=== PATIENT | male | born 1950 | race Caucasian/White ===

== ENCOUNTER → 2016-09-19 | Outpatient (CLI) | payer OTHER ==
[~2016-09-19] MED LIST: ADVIN25050 INH; ALBUAER2 INH; ASPI325T39 PO; BORO3CAP PO; BREWPOW PO; CHOL100010 PO; CHRO200T3 PO; COEN75CA PO; COPP1TAB PO; FOLI800T PO; IBUP-103 PO; IODITIN6 PO; IRON PO; MAGN30TA4 PO; METH10TA32 PO; NAPR1TAB9 PO; PRD/25 PO; ZINC1CAP PO
--- NOTE | 2016-09-19 09:31 | DIAGNOSTIC IMAGING REPORT ---
LEFT WRIST 4 VIEWS CLINICAL HISTORY: Palpable lump and wrist pain. FINDINGS: 4 views of left wrist are obtained. No prior studies are available for comparison at the time of dictation. The skeletal structures are osteopenic. No acute fracture is identified. 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 There is negative ulnar variance with advanced degenerative change at the distal radiocarpal joint. There is bony erosion of the radius at the radioulnar articulation. There is advanced arthritic change involving the carpal bones, with collapse of the proximal carpal row. 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 There is subluxation of the lunate seen on the lateral view. Advanced arthritic changes also present the carpometacarpal joints. Overlying soft tissue edema is noted. IMPRESSION: 1. Soft tissue swelling with no acute bony abnormalities identified. 2. Osteopenia with advanced arthritic change and deformity as well as collapse of the proximal carpal row as detailed above. Electronically signed by: José Miguel Huang M.D. 09/19/2016 9:29 AM Dictated Date/Time: 09/19/2016 9:26 AM
== END | disposition home or self-care (01) ==
LOC: C.LABPVFM 09:10
PROVIDERS: ATTEND Family Medicine
DX: R22.32 Localized swelling, mass and lump, left upper limb (principal); M79.9 Soft tissue disorder, unspecified; M85.842 Other specified disorders of bone density and structure, left hand; M19.032 Primary osteoarthritis, left wrist

== ENCOUNTER → 2017-04-23 | Outpatient (CLI) | payer OTHER ==
--- NOTE | 2017-04-23 12:29 | DIAGNOSTIC IMAGING REPORT ---
RIGHT ELBOW MIN 3 VIEWS ROUTINE CLINICAL HISTORY: 66 years-old Male presenting with ARM SWELLING RIGHT, lump on the medial aspect of the elbow, history of injury 20 years ago. TECHNIQUE: Frontal, oblique, and lateral views of the right elbow were obtained. COMPARISON: MR of the elbow from 10/08/2014. FINDINGS: No acute fracture or malalignment. Significant degenerative changes evidenced by joint space loss at the radiocapitellar articulation. Subchondral cystic change noted at the coronoid process and trochlea as well as exuberant osteophytosis. Slight deformity of the radial head may suggest prior fracture or relate to degenerative change. No significant soft tissue swelling over the olecranon. The extensive medial fluid collection seen on the previous study from 2014 is not appreciated radiographically. An elbow joint effusion may be present. IMPRESSION: Severe degenerative change at the medial and lateral joint space as above. No acute osseous injury. Possible elbow joint effusion. Given the presence of the large fluid collection in the medial soft tissues of the proximal forearm on prior MR from 2014, if there is continuing clinical concern for soft tissue swelling, contrast-enhanced MR of the elbow could be obtained. Electronically signed by: Garrett Dale M.D. 04/23/2017 12:27 PM Dictated Date/Time: 04/23/2017 12:23 PM
== END | disposition home or self-care (01) ==
LOC: C.RADPV 12:05
PROVIDERS: ATTEND Family Medicine
DX: M79.89 Other specified soft tissue disorders (principal); R22.31 Localized swelling, mass and lump, right upper limb

== ENCOUNTER → 2017-04-25 | Outpatient (CLI) | payer OTHER ==
[2017-04-25 18:04] LABS: BLOOD UREA NITROGEN 15 mg/dl (7-18); CREATININE 0.78 mg/dl (0.60-1.40)
== END | disposition home or self-care (01) ==
LOC: C.LABPVFM 13:13
PROVIDERS: ATTEND Family Medicine
DX: R22.30 Localized swelling, mass and lump, unspecified upper limb (principal)

== ENCOUNTER → 2017-04-29 | Outpatient (CLI) | payer OTHER ==
[~2017-04-29] MED LIST changes: +GADAVIST IV PRN
--- NOTE | 2017-04-29 13:28 | DIAGNOSTIC IMAGING REPORT ---
MRI THE RIGHT ELBOW WITHOUT A WITH GADOLINIUM CLINICAL HISTORY: Localized swelling, right elbow mass. COMPARISON STUDY: Outside MRI dated 10/08/2014, conventional radiographic study dated 04/21/2017. FINDINGS: Imaging was performed in the sagittal axial and coronal planes. Imaging before and after the administration of 6 cc of intravenous Gadavist was performed. There are multiple large intra-articular cystic lesions measuring up to 34 mm in diameter. These have increased in size and number when compared the preceding study. There is intraosseous involvement involving the distal humerus and proximal ulna. The intraosseous ulnar component measurers 37 mm in long axis. This also has increased significantly when compared the preceding study. Many of the cystic lesions demonstrate wall enhancement. There is a running of soft tissue enhancement surrounding the radial head measuring 1 cm in thickness. Diagnostic considerations include reactive synovial enhancement versus neoplasm. Given the interval change, biopsy should be considered in follow-up. IMPRESSION: 1. Interval increase in the size and number of the multiple intra-articular an intraosseous cystic lesions. 2. Synovial/soft tissue enhancement most pronounced the level of the radial head and neck. 3. While the findings may simply reflect multiple ganglion cysts and reactive synovial enhancement, a neoplastic process cannot be excluded. Biopsy should be considered in follow-up. Electronically signed by: Shivam Galo M.D. 04/29/2017 1:26 PM Dictated Date/Time: 04/29/2017 12:58 PM
== END | disposition home or self-care (01) ==
LOC: C.MRI 10:22
PROVIDERS: ATTEND Family Medicine
DX: R22.30 Localized swelling, mass and lump, unspecified upper limb (principal)